=== PATIENT | male | born 1960 | race American Indian/Alaskan Native ===

== ENCOUNTER 2019-08-06 23:45 | Observation (INO) | payer MEDICARE ==
[~2019-08-06 23:45] MED LIST: ADRENALIN ONE; CALCIUM CHLORIDE IV ONE
[2019-08-07 00:28] LABS: Basophils % (Auto) 0.8 % (0.0-1.8); Eosinophils % (Auto) 0.6 % (0.0-4.3); Hemoglobin 14.6 gm/dl (11.8-15.2); Lymphocytes # (Auto) 1.5 K/mm3 (1.2-5.4); Mean Corpuscular HGB Conc 33 % (32-34); Mean Corpuscular Volume 91 fl (84-94); Monocytes # (Auto) 0.3 K/mm3 (0.0-0.8); Monocytes % (Auto) 5.2 % (0.0-7.3); Platelet Count 198 K/mm3 (140-440); Red Blood Count 4.85 M/mm3 (3.65-5.03); Red Cell Distribution Width 15.8 % (13.2-15.2)
--- NOTE | 2019-08-07 00:32 | XRay Report ---
CHEST 2 VIEWS INDICATION / CLINICAL INFORMATION: Chest Pain. COMPARISON: None available. FINDINGS: SUPPORT DEVICES: None. HEART / MEDIASTINUM: No significant abnormality. LUNGS / PLEURA: No significant pulmonary or pleural abnormality. No pneumothorax. ADDITIONAL FINDINGS: No significant additional findings. IMPRESSION: 1. No acute findings. Signer Name: Jadon Crowder MD Signed: 08/07/2019 12:27 AM Workstation Name: [id number]
[2019-08-07 00:52] LABS: Alanine Aminotransferase 13 units/L (7-56); Albumin 4.5 g/dL (3.9-5); BUN/Creatinine Ratio 11; Blood Urea Nitrogen 9 mg/dL (9-20); Calcium 9.1 mg/dL (8.4-10.2); Hemolysis Index 3
[2019-08-07] MEDS ORDERED: ASPIRIN PO ONE (01:06)
--- NOTE | 2019-08-07 01:13 | Emergency Department Report ---
<IRON DANIELS - Last Filed: 08/07/19 03:25> ED Chest Pain HPI - General Chief Complaint: Chest Pain Stated Complaint: CHEST PAIN/SOB Time Seen by Provider: 08/07/19 00:46 Source: patient Mode of arrival: Ambulatory Limitations: No Limitations - History of Present Illness Initial Comments: pt is a 58-year-old male presents emergency room complaints of chest pain across the chest that began 4-5 days ago. he has associated shortness of breath, pleuritic chest pain, nausea, generalized headache, tingling sensation in the bilateral hands. Denies any diaphoresis, vomiting, fever, unilateral weakness. Denies any lower extremity edema, recent travel, recent surgery, recent immobilization. Patient states he is a smoker of tobacco and marijuana and occasional drinker. Past medical history of hypertension and has not taken any medication a couple months and does not know what he takes. denies any personal cardiac history. His mother and father had a TN. - Related Data Previous Rx's Medication Instructions Recorded Last Taken Type Cyclobenzaprine [Flexeril] 10 mg PO TID PRN #14 tablet 03/19/14 Unknown Rx HYDROcodone/APAP 7.5-325 [[place] 1 each PO Q6HR PRN #14 tablet 03/19/14 Unknown Rx 7.5-325 mg TAB] Prednisone [Prednisone 10 mg 10 mg PO .TAPER #1 tab.ds.pk 03/19/14 Unknown Rx (6-Day Pack, 21 Tabs)] Permethrin 5% [Acticin 5% CREAM] 1 applicatio TP ONCE #1 tube 06/16/15 Unknown Rx hydrOXYzine HCL [Atarax] 25 mg PO Q6HR PRN #20 tablet 06/16/15 Unknown Rx Allergies Allergy/AdvReac Type Severity Reaction Status Date / Time ibuprofen Allergy Vomiting Verified 06/15/15 19:33 Heart Score - HEART Score History: Moderately suspicious EKG: Non-specific Age: 45-65 Risk factors: > 3 risk factors or hx of atherosclerotic disease Troponin: < normal limit HEART Score: 5 ED Review of Systems Comment: All other systems reviewed and negative ED Past Medical Hx - Past Medical History Previous Medical History?: Yes Hx Hypertension: Yes (no meds) - Surgical History Past Surgical History?: Yes Additional Surgical History: back surgery, r) knee surgery, neck surgery - Social History Smoking Status: Unknown if ever smoked Substance Use Type: None - Medications Home Medications: Home Medications Medication Instructions Recorded Confirmed Last Taken Type Cyclobenzaprine [Flexeril] 10 mg PO TID PRN #14 tablet 03/19/14 Unknown Rx HYDROcodone/APAP 7.5-325 [[place] 1 each PO Q6HR PRN #14 tablet 03/19/14 Unknown Rx 7.5-325 mg TAB] Prednisone [Prednisone 10 mg 10 mg PO .TAPER #1 tab.ds.pk 03/19/14 Unknown Rx (6-Day Pack, 21 Tabs)] Permethrin 5% [Acticin 5% CREAM] 1 applicatio TP ONCE #1 tube 06/16/15 Unknown Rx hydrOXYzine HCL [Atarax] 25 mg PO Q6HR PRN #20 tablet 06/16/15 Unknown Rx ED Physical Exam - General Limitations: No Limitations General appearance: alert, in no apparent distress - Head Head exam: Present: atraumatic, normocephalic - Eye Eye exam: Present: normal appearance, PERRL, EOMI - ENT ENT exam: Present: mucous membranes moist - Respiratory Respiratory exam: Present: normal lung sounds bilaterally. Absent: respiratory distress, wheezes, rales, rhonchi, stridor, chest wall tenderness, accessory muscle use, decreased breath sounds, prolonged expiratory - Cardiovascular Cardiovascular Exam: Present: regular rate, normal rhythm, normal heart sounds. Absent: systolic murmur, diastolic murmur, rubs, gallop - GI/Abdominal GI/Abdominal exam: Present: soft, normal bowel sounds. Absent: distended, tenderness, guarding, rebound, rigid - Extremities Exam Extremities exam: Absent: pedal edema - Neurological Exam Neurological exam: Present: alert, oriented X3, CN II-XII intact, normal gait, other (normal finger to nose, normal heel to hand, 5/5 strength in the BUE/BLE, sensation intake throughout, normal tandem walking, no focal neuro deficit). Absent: motor sensory deficit - Psychiatric Psychiatric exam: Present: normal affect, normal mood - Skin Skin exam: Present: warm, dry, intact ED Course - Consultations Consultation #1: 08/07/19 02:[address] Tran, hospitalist who will accept and resume care of pt and admit pt to the hospital IRVING score - Irving Score Age > 65: (0) No Aspirin use within the Past 7 Days: (0) No 3 or more CAD Risk Factors: (1) Yes 2 or more Angina events in past 24 hrs: (1) Yes Known CAD with more than 50% Stenosis: (0) No Elevated Cardiac Markers: (0) No ST Deviation Greater than 0.5mm: (0) No IRVING Score: 2 ED Medical Decision Making - Lab Data Result diagrams: 08/07/19 00:18 08/07/19 00:18 - EKG Data EKG shows normal: sinus rhythm, axis, intervals Rate: normal - EKG Data Interpretation: LVH 08/07/19 02:18 no STEMI - Radiology Data Radiology results: report reviewed CHEST 2 VIEWS INDICATION / CLINICAL INFORMATION: Chest Pain. COMPARISON: None available. FINDINGS: SUPPORT DEVICES: None. HEART / MEDIASTINUM: No significant abnormality. LUNGS / PLEURA: No significant pulmonary or pleural abnormality. No pneumothorax. ADDITIONAL FINDINGS: No significant additional findings. IMPRESSION: 1. No acute findings. Signer Name: Jadon Crowder MD Signed: 08/07/2019 12:27 AM Workstation Name: [id number] Transcribed By: MICAH Dictated By: Jadon Crowder MD Electronically Authenticated By: Jadon Crowder MD Signed Date/Time: 08/07/1926 DD/ TD/TT: - Medical Decision Making pt is a 58-year-old male presents emergency room complaints of chest pain across the chest that began 4-5 days ago. he has associated shortness of breath, pleuritic chest pain, nausea, generalized headache, tingling sensation in the bilateral hands. Denies any diaphoresis, vomiting, fever, unilateral weakness. Denies any lower extremity edema, recent travel, recent surgery, recent immobilization. Patient states he is a smoker of tobacco and marijuana and occasional drinker. Past medical history of hypertension and has not taken any medication a couple months and does not know what he takes. denies any personal cardiac history. His mother and father had a TN. vitals with elevated blood pressure which improved upon repeat otherwise normal. labs are stable. troponin is negative. d-dimer is negative. pt is PERC criteria negative and very low risk based on wells criteria for PE. EKG with LVH, no STEMI. CXR with no acute findings. pts heart score is a 5 which recommends admission for further cardiac workup. spoke with Dr. Tran, hospitalist who will accept and resume care of pt and admit pt to the hospital. pt admitted to the hospital - Differential Diagnosis ACS, PE, GERD, PUD, aortic aneurysm/dissection, costochrondritis, valve dz ED Disposition Clinical Impression: SOB (shortness of breath) Chest pain Qualifiers: Chest pain type: unspecified Qualified Code(s): R07.9 - Chest pain, unspecified HTN (hypertension) Qualifiers: Hypertension type: essential hypertension Qualified Code(s): I10 - Essential (primary) hypertension Disposition: OP ADMIT IP TO THIS HOSP Is pt being admited?: Yes Does the pt Need Aspirin: Yes (given) Condition: Fair Instructions: Chest Pain (ED) Referrals: SAMMI RENE MD [Primary Care Provider] - 3-5 Days Time of Disposition: 02:22 Print Language: SUDANESE <GILSON SUAREZ - Last Filed: 08/07/19 05:11> ED Review of Systems ROS: Stated complaint: CHEST PAIN/SOB Other details as noted in HPI ED Course Vital Signs 08/07/19 08/07/19 08/07/19 00:10 00:46 01:00 Temperature 98.3 F Pulse Rate 74 63 65 Respiratory 16 12 10 L Rate Blood Pressure 188/97 152/105 O2 Sat by Pulse 98 99 Oximetry 08/07/19 08/07/19 08/07/19 01:15 01:31 01:45 Temperature Pulse Rate 57 L 58 L 55 L Respiratory 19 18 14 Rate Blood Pressure 152/105 152/105 142/82 O2 Sat by Pulse 97 96 96 Oximetry 08/07/19 08/07/19 08/07/19 02:00 02:30 02:38 Temperature Pulse Rate 57 L 57 L Respiratory 16 17 18 Rate Blood Pressure 150/76 149/84 O2 Sat by Pulse 93 95 Oximetry 08/07/19 08/07/19 08/07/19 03:01 03:30 04:00 Temperature Pulse Rate 56 L 55 L 60 Respiratory 18 18 16 Rate Blood Pressure 153/78 146/80 148/86 O2 Sat by Pulse 93 98 94 Oximetry 08/07/19 04:30 Temperature Pulse Rate 60 Respiratory 16 Rate Blood Pressure 142/79 O2 Sat by Pulse 93 Oximetry - Reevaluation(s) Reevaluation #1: 08/07/19 05:10 perc criteria do not appy to this patient as he older than 50 He is however, low risk by well's criteria, and had a negative d-dimer. Therefore, very low probability of pulmonary embolism, and does not require additional risk stratification at this time. Most likely diagnosis is obstructive lung disease, likely secondary to tobacco and inhalational consumption. ED Medical Decision Making - Lab Data Result diagrams: 08/07/19 00:18 08/07/19 00:18 Critical care attestation.: If time is entered above; I have spent that time in minutes in the direct care of this critically ill patient, excluding procedure time. ED Disposition Is pt being admited?: Yes Does the pt Need Aspirin: Yes
[2019-08-07 01:52] LABS: INR 0.99 (0.87-1.13)
[2019-08-07 01:53] LABS: Partial Thromboplastin Time 30.5 Sec. (24.2-36.6)
[2019-08-07] MEDS ORDERED: CARAFATE PO ONE (02:10)
[2019-08-07] MEDS ORDERED: PEPCID PO ONE (02:10)
[2019-08-07] MEDS ORDERED: PROVENTIL IH ONE (02:10)
[2019-08-07] MEDS ORDERED: TESSALON PERLES PO ONE (02:10)
--- NOTE | 2019-08-07 02:12 | Event Note ---
Date of service: 08/07/19 Face to Face: This is a 58-year-old gentleman, not known to this provider previously, reports history of tobacco use, intermittent cannabis use, possible hypertension, strong family history of heart disease, coming in with left-sided and right-sided chest pain, intermittent shortness of breath. His pain is pleuritic. The patient denies DVT, pulmonary embolus risk factors. He is not tachycardic, hypoxic, or tachypneic, and he is low risk by well's criteria. A d-dimer is negative. EKG nonspecific with left ventricular hypertrophy. D-dimer negative, troponin negative, however, patient endorses strong family history of heart disease. The patient is moderate risk for major adverse cardiac event as per the heart score. Inpatient admission is recommended for expedited cardiac risk stratification. We will treat the patient's symptoms, the hospital physician will be paged to arrange admission. Vital Signs 08/07/19 08/07/19 08/07/19 00:10 00:46 01:00 Temperature 98.3 F Pulse Rate 74 63 65 Respiratory 16 12 10 L Rate Blood Pressure 188/97 152/105 O2 Sat by Pulse 98 99 Oximetry 08/07/19 08/07/19 08/07/19 01:15 01:31 01:45 Temperature Pulse Rate 57 L 58 L 55 L Respiratory 19 18 14 Rate Blood Pressure 152/105 152/105 142/82 O2 Sat by Pulse 97 96 96 Oximetry Lab Results 08/07/19 08/07/19 08/07/19 Range/Units 00:18 00:18 01:26 WBC 5.3 (4.5-11.0) K/mm3 RBC 4.85 (3.65-5.03) M/mm3 Hgb 14.6 (11.8-15.2) gm/dl Hct 44.0 (35.5-45.6) % MCV 91 (84-94) fl MCH 30 (28-32) pg MCHC 33 (32-34) % RDW 15.8 H (13.2-15.2) % Plt Count 198 (140-440) K/mm3 Lymph % (Auto) 28.0 (13.4-35.0) % [place] % (Auto) 5.2 (0.0-7.3) % Eos % (Auto) 0.6 (0.0-4.3) % Baso % (Auto) 0.8 (0.0-1.8) % Lymph # 1.5 (1.2-5.4) K/mm3 [place] # 0.3 (0.0-0.8) K/mm3 Eos # 0.0 (0.0-0.4) K/mm3 Baso # 0.0 (0.0-0.1) K/mm3 Seg Neutrophils % 65.4 (40.0-70.0) % Seg Neutrophils # 3.4 (1.8-7.7) K/mm3 PT 12.8 (12.2-14.9) Sec. INR 0.99 (0.87-1.13) APTT 30.5 (24.2-36.6) Sec. D-Dimer < 135.0 (0-234) ng/mlDDU Sodium 139 (137-145) mmol/L Potassium 4.0 (3.6-5.0) mmol/L Chloride 99.4 (98-107) mmol/L Carbon Dioxide 28 (22-30) mmol/L Anion Gap 16 mmol/L BUN 9 (9-20) mg/dL Creatinine 0.8 (0.8-1.5) mg/dL Estimated GFR > 60 ml/min BUN/Creatinine Ratio 11 % Glucose 101 H (75-100) mg/dL Calcium 9.1 (8.4-10.2) mg/dL Phosphorus (2.5-4.5) mg/dL Magnesium (1.7-2.3) mg/dL Total Bilirubin 0.40 (0.1-1.2) mg/dL AST 23 (5-40) units/L ALT 13 (7-56) units/L Alkaline Phosphatase 79 (35-129) units/L Total Creatine Kinase (55-170) units/L Troponin T (0.00-0.029) ng/mL Total Protein 7.9 (6.3-8.2) g/dL Albumin 4.5 (3.9-5) g/dL Albumin/Globulin Ratio 1.3 % Lipase (13-60) units/L 08/07/19 Range/Units 01:26 WBC (4.5-11.0) K/mm3 RBC (3.65-5.03) M/mm3 Hgb (11.8-15.2) gm/dl Hct (35.5-45.6) % MCV (84-94) fl MCH (28-32) pg MCHC (32-34) % RDW (13.2-15.2) % Plt Count (140-440) K/mm3 Lymph % (Auto) (13.4-35.0) % [place] % (Auto) (0.0-7.3) % Eos % (Auto) (0.0-4.3) % Baso % (Auto) (0.0-1.8) % Lymph # (1.2-5.4) K/mm3 [place] # (0.0-0.8) K/mm3 Eos # (0.0-0.4) K/mm3 Baso # (0.0-0.1) K/mm3 Seg Neutrophils % (40.0-70.0) % Seg Neutrophils # (1.8-7.7) K/mm3 PT (12.2-14.9) Sec. INR (0.87-1.13) APTT (24.2-36.6) Sec. D-Dimer (0-234) ng/mlDDU Sodium (137-145) mmol/L Potassium (3.6-5.0) mmol/L Chloride (98-107) mmol/L Carbon Dioxide (22-30) mmol/L Anion Gap mmol/L BUN (9-20) mg/dL Creatinine (0.8-1.5) mg/dL Estimated GFR ml/min BUN/Creatinine Ratio % Glucose (75-100) mg/dL Calcium (8.4-10.2) mg/dL Phosphorus 3.30 (2.5-4.5) mg/dL Magnesium 1.90 (1.7-2.3) mg/dL Total Bilirubin (0.1-1.2) mg/dL AST (5-40) units/L ALT (7-56) units/L Alkaline Phosphatase (35-129) units/L Total Creatine Kinase 223 H (55-170) units/L Troponin T < 0.010 (0.00-0.029) ng/mL Total Protein (6.3-8.2) g/dL Albumin (3.9-5) g/dL Albumin/Globulin Ratio % Lipase 24 (13-60) units/L
[2019-08-07] MEDS ORDERED: NITROSTAT SL PRN (03:07)
[2019-08-07] MEDS ORDERED: ZOFRAN IV PRN (03:07)
[2019-08-07] MEDS ORDERED: MORPHINE IV PRN (03:07)
[2019-08-07] MEDS: HEPARIN SUB-Q SCH ×2 (03:15→10:18)
[2019-08-07 06:24] LABS: Creatine Kinase MB 2.7 ng/mL (0.0-4.0)
--- NOTE | 2019-08-07 07:45 | History and Physical Report ---
CHIEF COMPLAINT: Chest pain. HISTORY OF PRESENTING ILLNESS: The patient is a 58-year-old male who said he has been having retrosternal and precordial chest pain going on for about 4-5 days. There is history of associated tingling sensation in the left upper extremity. There is also a history of associated shortness of breath and nausea, but no vomiting. The patient also complained about generalized headache and denied history of diaphoresis, fever or cough and said that the pain was relieved with pain medication. The patient said that the pain is affected by breathing, but not by movement. PAST MEDICAL HISTORY: Pertinent for hypertension and illicit drug abuse, notably marijuana. PAST SURGICAL HISTORY: Pertinent for back surgery, right knee surgery and neck surgery. FAMILY HISTORY: Pertinent for coronary artery disease in the father and mother. SOCIAL HISTORY: The patient smokes cigarettes, uses marijuana and drinks alcohol. MEDICATIONS: The patient is on Flexeril 10 mg by mouth 3 times daily, [place] 7.5 mg/325 mg 1 by mouth every 6 hours as needed for pain and the patient is on Atarax 25 mg by mouth every 6 hours as needed for itching. ALLERGIES: THE PATIENT IS ALLERGIC TO IBUPROFEN. REVIEW OF SYSTEMS: CONSTITUTIONAL: There is no fever, no chills, no diaphoresis. HEENT: There is headache, but no sore throat. CARDIOVASCULAR SYSTEM: Chest pain is present. No orthopnea. RESPIRATORY SYSTEM: Shortness of breath is present. No cough. GASTROINTESTINAL SYSTEM: There is nausea, but no vomiting, no abdominal pain, diarrhea or constipation. NEUROLOGICAL SYSTEM: There is tingling sensation in the left upper extremity, but no dizziness, no altered mental status. MUSCULOSKELETAL SYSTEM: There is no joint pain or swelling. DERMATOLOGICAL SYSTEM: There is no skin rash or itching. GENITOURINARY SYSTEM: There is no dysuria, hematuria, or flank pain. Rest of system review is normal. PHYSICAL EXAMINATION: GENERAL: At the time of exam, the patient was found to be alert, oriented x 3 and not in acute distress. VITAL SIGNS: At the initial time of presentation showed temperature of 98.3 degrees Fahrenheit, pulse of 74, respirations 16, blood pressure 188/97, O2 sat of 98% on room air. HEENT: Showed pupils to be equal, round, reactive to light and accommodating. Extraocular muscles are intact. NECK: Supple with no JVD or carotid bruit. CARDIOVASCULAR SYSTEM: Showed normal first and second heart sounds with no gallops or murmurs. RESPIRATORY SYSTEM: Showed good air entry on both sides of the lungs with no abnormal breath sounds. GASTROINTESTINAL SYSTEM: Showed abdomen to be full, soft, nontender with no organomegaly or rigidity. NEUROLOGIC: Showed no focal deficit. MUSCULOSKELETAL SYSTEM: Showed no joint swelling or tenderness. DERMATOLOGICAL SYSTEM: Showing no skin rash. GENITOURINARY SYSTEM: Showing no costovertebral angle tenderness. PERTINENT LABORATORY AND IMAGING STUDIES: The patient had chest x-ray done that came back showing no acute findings. Lab results: The patient has CBC done, which was unremarkable. The patient's coagulation studies came back unremarkable and the patient's chemistry was normal except for slightly elevated total creatine kinase of 223 and troponin level was normal. DIAGNOSES 1. Chest pain. 2. Hypertension. PLAN OF CARE: 1. The patient will be placed on observation on telemetry. 2. The patient will have serial cardiac enzyme involving troponin, total CK, and CK-MB checked every 6 hours for 2 more levels. 3. The patient will be n.p.o. for Lexiscan stress test this morning. 4. The patient will be on oxygen by nasal cannula at 2 liters per minute. 5. The patient will be on aspirin 325 mg by mouth daily. 6. The patient will be on nitro paste 1 inch to anterior chest wall q.i.d. and will also be on sublingual nitroglycerin 0.4 mg every 5 minutes as needed for breakthrough chest pain. 7. The patient will be on Tylenol 650 mg by mouth every 4 hours for fever and headache and will be on IV morphine 2 mg every 3 hours as needed for pain. 8. The patient will be on IV Zofran 4 mg every 8 hours as needed for nausea and vomiting. JOB# [id number] OCN/NTS
[2019-08-07] MEDS ORDERED: LEXISCAN IV ONE (08:07)
[2019-08-07] MEDS ORDERED: ASPIRIN PO SCH (10:00)
[2019-08-07] MEDS: NITRO-BID 2% TP SCH ×2 (10:18→14:04)
--- NOTE | 2019-08-07 11:18 | Event Note ---
Date: 08/07/19 Stress test normal
--- NOTE | 2019-08-07 12:22 | Discharge Summary ---
Providers - Providers Date of Admission: 08/07/19 05:58 Date of discharge: 08/07/19 Attending physician: MARIA ELENA GOLDBERG MD [facility] Reason for admission: Chest pain, uncontrolled HTN, medication non-compliance Condition: Fair Hospital course: 58-year-old male presents emergency room complaints of chest pain across the chest that began 4-5 days ago. He has associated shortness of breath, pleuritic chest pain, nausea, generalized headache, tingling sensation in the bilateral hands. Denies any diaphoresis, vomiting, fever, unilateral weakness. Denies any lower extremity edema, recent travel, recent surgery, recent immobilization. Patient states he is a smoker of tobacco and marijuana and occasional drinker. Patient didn't take his BP medications for the last 2 months, claimed these BP medications doesn't work and cause ED. Patient was admitted to the floor, cardiac enzymes are negative, Stress test was negative. Chest pain subsided. Patient was given amlodipine and hydralazine and discharged home. Disposition: TO HOME OR SELFCARE Time spent for discharge: 32 minutes - Discharge Diagnoses (1) Chest pain Status: Acute Qualifiers: Chest pain type: unspecified Qualified Code(s): R07.9 - Chest pain, unspecified (2) HTN (hypertension) Status: Chronic Qualifiers: Hypertension type: essential hypertension Qualified Code(s): I10 - Essential (primary) hypertension (3) SOB (shortness of breath) Status: Acute (4) Nonadherence to medication Status: Chronic Core Measure Documentation - Palliative Care Palliative Care/ Comfort Measures: Not Applicable - Core Measures Any of the following diagnoses?: none Exam - Constitutional Vitals: Temp Pulse Resp BP Pulse Ox 98.2 F 58 L 20 168/85 99 08/07/19 07:44 08/07/19 08:30 08/07/19 08:30 08/07/19 09:12 08/07/19 08:30 General appearance: Present: no acute distress - EENT Eyes: Present: PERRL ENT: hearing intact, clear oral mucosa - Neck Neck: Present: supple, normal ROM - Respiratory Respiratory effort: normal Respiratory: bilateral: CTA - Cardiovascular Heart Sounds: Present: S1 & S2. Absent: rub, click - Extremities Extremities: pulses symmetrical, No edema Peripheral Pulses: within normal limits - Abdominal General gastrointestinal: Present: soft, non-tender, non-distended, normal bowel sounds Male genitourinary: Present: deferred - Rectal Rectal Exam: deferred - Integumentary Integumentary: Present: clear, warm, dry - Musculoskeletal Musculoskeletal: gait normal, strength equal bilaterally - Psychiatric Psychiatric: appropriate mood/affect, intact judgment & insight - Neurologic Neurologic: CNII-XII intact, moves all extremities Plan Activity: no restrictions Weight Bearing Status: Full Weight Bearing Diet: low salt Follow up with: SAMMI RENE MD [Primary Care Provider] - 3-5 Days Prescriptions: Aspirin [Aspirin BABY CHEW TAB] 81 mg PO QDAY #30 tab.chew hydroCHLOROthiazide [HCTZ] 25 mg PO QDAY #30 tablet amLODIPine [Norvasc] 10 mg PO QDAY #30 tablet
[2019-08-07] MEDS ORDERED: HCTZ PO SCH (13:00)
[2019-08-07] MEDS ORDERED: NORVASC PO SCH (13:00)
[2019-08-07 14:11] LABS: Creatine Kinase MB 2.7 ng/mL (0.0-4.0)
[2019-08-07 14:26] VITALS: BP 129/82
--- NOTE | 2019-08-08 01:40 | Treadmill Report ---
MYOCARDIAL PERFUSION SCAN REPORT REQUESTING PHYSICIAN: [facility] medical service. Myocardial perfusion scan was done using a standard Lexiscan protocol. Rest and stress images were reviewed. Gated images were reviewed. FINDINGS: 1. Normal myocardial perfusion scan. 2. Normal LV systolic function. IMPRESSION: 1. Normal myocardial perfusion scan. 2. This is a low risk cardiovascular study. JOB# [id number] RR/NTS
== END 2019-08-07 14:35 | disposition home or self-care (01) ==
LOC: ED 23:45 → 4A 08-07 05:58
PROVIDERS: ADMIT Internal Medicine; ATTEND Internal Medicine
DX: R07.89 Other chest pain (principal); I10 Essential (primary) hypertension; F17.210 Nicotine dependence, cigarettes, uncomplicated
CPT/HCPCS: 36415; 71046; 78452; 80053; 82550; 82553; 83690; 83735; 84100; 84484; 85025; 85379; 85610; 85730; 93005; 93010; 93017; 99284; A9502; G0378; J0171; J1644; J2785